=== PATIENT | male | born 1970 | race Caucasian/White ===

== ENCOUNTER 2016-08-05 12:53 | Emergency (ER) | payer OTHER ==
[2016-08-05 14:03] LABS: HEMOGLOBIN 13.2 gm/dl (14.0-17.5); RED BLOOD COUNT 4.21 M/UL (4.20-5.50); WHITE BLOOD COUNT 21.2 K/UL (4.5-11.0)
[2016-08-05 14:25] LABS: BUN/CREATININE RATIO 16 (0-10)
== END 2016-08-05 20:20 | disposition short-term general hospital (02) ==
LOC: ER1 12:53
PROVIDERS: Emergency Medicine
DX: A41.9 Sepsis, unspecified organism (principal); N45.2 Orchitis; E11.65 Type 2 diabetes mellitus with hyperglycemia; D72.829 Elevated white blood cell count, unspecified; K80.20 Calculus of gallbladder without cholecystitis without obstruction; I10 Essential (primary) hypertension; F17.200 Nicotine dependence, unspecified, uncomplicated
CPT/HCPCS: 36415; 76870; 80053; 81001; 82009; 83605; 85025; 87040; 87077; 87086; 87186; 93005; 96374; 96375; 99285; J2405; J2543; J7050

== ENCOUNTER 2016-09-28 16:32 | Emergency (ER) | payer OTHER | END 2016-09-28 20:15 | disposition left against medical advice (07) | LOC: ER1 16:32 | DX: Z53.21 Procedure and treatment not carried out due to patient leaving prior to being seen by health care provider (principal) ==